=== PATIENT | female | born 1990 | race Caucasian/White ===

== ENCOUNTER 2019-02-12 14:10 | Emergency (ER) | payer OTHER ==
[2019-02-12 14:59] VITALS: BP 120/78; PULSE 77; RESP 18; TEMP 97.5
--- NOTE | 2019-02-12 15:28 | ED ---
General Adult HPI - General Chief complaint: Skin/Abscess/Foreign Body Stated complaint: Possible scabies Time Seen by Provider: 02/12/19 15:08 Source: patient, RN notes reviewed Mode of arrival: ambulatory Limitations: no limitations - History of Present Illness Initial comments: 21-year-old female presents for pruritic rash 2 weeks. Patient states her roommate was diagnosed with scabies. She states her roommate had the skin scraping done. Patient states that for the past 2 weeks she has been itching. She has noticed a rash on her arms legs and abdomen. She is also itching on her back. Patient is concerned she may have scabies. Patient currently in a rehab facility for heroin use. She states that the facility wanted her to be examined. Patient is currently 29 weeks . No vaginal bleeding or prengnancy complications. Patient has no other complaints at this time including shortness of breath, chest pain, abdominal pain, nausea or vomiting, headache, or visual changes. - Related Data Previous Rx's Medication Instructions Recorded Permethrin 5% Cream [Elimite] 1 applic TOPICAL ONCE #100 ml 02/12/19 Allergies Allergy/AdvReac Type Severity Reaction Status Date / Time No Known Allergies Allergy Verified 02/12/19 14:57 Review of Systems ROS Statement: Those systems with pertinent positive or pertinent negative responses have been documented in the HPI. ROS Other: All systems not noted in ROS Statement are negative. Past Medical History Past Medical History: No Reported History History of Any Multi-Drug Resistant Organisms: None Reported Past Surgical History: No Surgical Hx Reported Past Psychological History: No Psychological Hx Reported Smoking Status: Current every day smoker Past Alcohol Use History: None Reported Past Drug Use History: Heroin General Exam Limitations: no limitations General appearance: alert, in no apparent distress Head exam: Present: atraumatic, normocephalic, normal inspection Eye exam: Present: normal appearance, PERRL, EOMI. Absent: scleral icterus, conjunctival injection, periorbital swelling ENT exam: Present: normal exam, mucous membranes moist Neck exam: Present: normal inspection, full ROM. Absent: tenderness, meningismus, lymphadenopathy Respiratory exam: Present: normal lung sounds bilaterally. Absent: respiratory distress, wheezes, rales, rhonchi, stridor Cardiovascular Exam: Present: regular rate, normal rhythm, normal heart sounds. Absent: systolic murmur, diastolic murmur, rubs, gallop, clicks GI/Abdominal exam: Present: soft, normal bowel sounds. Absent: distended, tenderness, guarding, rebound, rigid Skin exam: Present: rash (Patient does have small areas of erythema with excoriations noted on the limbs as well as abdomen consistent with scabies. Small lesions around the belly button as well as finger webs.) Course Vital Signs 02/12/19 14:54 Temperature 97.5 F L Pulse Rate 77 Respiratory 18 Rate Blood Pressure 120/78 O2 Sat by Pulse 98 Oximetry Medical Decision Making - Medical Decision Making 29-year-old female presents to the emergency department for a chief complaint of rash. Patient was exposed to scabies as her roommate was diagnosed with this. Patient has been pruritic for about 2 weeks. On exam patient does have areas of erythema noted with radiations. Small flat erythematous Lesions are noted to the limbs abdomen and back. These are consistent with scabies as there are some noted around the belly button as well as finger webs. Given patient's history as well as symptoms scabies is likely. Patient will be treated with permethrin cream. I did discuss thoroughly how to properly use this. Patient is 29 weeks , permethrin was a category B rating with less than 2% systemic absorption. Patient will follow up with dermatology and primary care. She will return here if she has any worsening symptoms. Disposition Clinical Impression: Rash, Scabies Disposition: HOME SELF-CARE Condition: Good Instructions (If sedation given, give patient instructions): Scabies (ED), Permethrin (On the skin) Additional Instructions: Please use lotion as directed. Apply and leave on for about 12 hours from the neck down. Then wash with soap and water. Reapply in 7-14 days if needed. Follow up with dermatology in 1-2 days. Return here for any worsening symptoms. Prescriptions: Permethrin 5% Cream [Elimite] 1 applic TOPICAL ONCE #100 ml Is patient prescribed a controlled substance at d/c from ED?: No Referrals: Maura Wing MD [STAFF PHYSICIAN] - 1-2 days Tana Dong MD [REFERRING] - 1-2 days Time of Disposition: 15:25
== END 2019-02-12 16:00 | disposition home or self-care (01) ==
LOC: EC 14:10
DX: O99.89 Other specified diseases and conditions complicating pregnancy, childbirth and the puerperium (principal); O99.333 Smoking (tobacco) complicating pregnancy, third trimester; B86 Scabies; F17.200 Nicotine dependence, unspecified, uncomplicated; Z3A.29 29 weeks gestation of pregnancy
CPT/HCPCS: 99282

== ENCOUNTER 2019-03-12 10:12 | Outpatient (CLI) | payer OTHER ==
[2019-03-12] MEDS ORDERED: TERBUTALINE 1 MG/ML VIAL SQ STA (11:37)
[2019-03-12 11:48] VITALS: PULSE 74; RESP 16; TEMP 97.9
[2019-03-12 13:46] VITALS: BP 132/84
--- NOTE | 2019-03-20 09:45 | P.MSEPDOC ---
Presenting Problems - Arrival Data Date of Arrival on Unit: 03/12/19 Time of Arrival on Unit: 10:15 Mode of Transport: EMS - Complaint OB-Reason for Admission/Chief Complaint: Rule Out PROM Comment: week ago leaking. but yesterday really leaking Medical History - Information : 2 Para: 1 Term: 1 : 0 Abortions: Spontaneous or Elective: 0 Number of Living Children: 1 - Gestational Age Gestational Age by SHARDA (wks/days): 31 Weeks and 6 Days - History Complications: Hx. Substance Abuse, Other Comment: 31 6/7 weeks. care in [facility] . dr piña. nae staples. hx heroin and ms use stopped in dec. on methodone now Review of Systems - Review of Systems Constitutional: No problems Breast: No problems ENT: No problems Cardiovascular: No problems Respiratory: No problems Gastrointestinal: No problems Genitourinary: No problems Musculoskeletal: No problems Neurological: No problems Skin: No problems Vital Signs - Temperature Temperature: 97.9 F Temperature Source: Temporal Artery Scan - Pulse Radial Pulse Rate: 74 Pulse Assessment Method: Automatic Cuff - Respirations Respiratory Rate: 16 O2 Sat by Pulse Oximetry: 100 - Blood Pressure Right Arm Blood Pressure: 132/84 Blood Pressure Mean: 100 Blood Pressure Source: Automatic Cuff Medical Screen Scoring (Pre) - Cervical Exam Dilation: 0 cm = 0 Membranes: Intact - Uterine Contractions Frequency: > 5 minutes apart = 1 Duration: > 40 seconds = 2 Intensity: N/A - Maternal Vital Signs Maternal Temperature: N/A Maternal Blood Pressure: N/A Signs of Preeclampsia: N/A Maternal Respirations: N/A - Pain Assessment Pain Location and Character: Abdomen Pain Scale Used: Numeric (1 - 10) Pain Intensity: 3 Pain Description: Cramping Pain Frequency: Intermittent Pain Behavior: Vocalization - Assessment Baseline FHR: 130 Heart Rate - NICHD Category: Category I (Normal) = 0 NST: Reactive Position: N/A Station: N/A - Total Score Total Score (Pre): 3 - Level of Risk Level of Risk: Low (0-5) Physician Notification (Pre) - Physician Notified Physician Notified Date: 03/12/19 Physician Notified Time: 11:15 Physician/Practitioner Notifed:: amina Spoke With: amina New Order Received: Yes Medical Screen Scoring (Post) - Cervical Exam Dilation: 0 cm = 0 Effacement: More than 50% = 2 Membranes: Intact - Uterine Contractions Frequency: > 5 minutes apart = 1 Duration: N/A Intensity: N/A - Maternal Vital Signs Maternal Temperature: N/A Maternal Blood Pressure: N/A Signs of Preeclampsia: N/A Maternal Respirations: N/A - Pain Assessment Pain Location and Character: Abdomen Pain Scale Used: Numeric (1 - 10) Pain Intensity: 1 Pain Description: Cramping Pain Frequency: Intermittent Pain Behavior: Vocalization - Maternal Trauma Maternal Trauma: N/A - Assessment Heart Rate: 120 Heart Rate - NICHD Category: Category I (Normal) = 0 - Total Score Total Score (Post): 3 - Post Treatment Level of Risk Post Treatment Level of Risk: Low (0-5) Physician Notification (Post) - Physician Notified Physician Notified Date: 03/12/19 Physician Notified Time: 12:45 Physician/Practitioner Notified:: amina Spoke With: amina New Order Received: Yes (discharge with instructions) - Notification Comment Comment: will schedule appt with her high risk dr hay. this week Disposition - Disposition OB Disposition: Discharge to home, Written follow up instructions reviewed Discharge Date: 03/12/19 Discharge Time: 13:10 I agree with the RN Medical Screening Exam: No Physician's MSE Comment: Inadequate documentation Risk & Benefit of care provided described in d/c instruction: No Diagnosis: FALSE LABOR, UNSPECIFIED
== END 2019-03-12 13:10 | disposition home or self-care (01) ==
LOC: FBPOP 10:12
PROVIDERS: ATTEND Obstetrics & Gynecology
DX: O47.03 False labor before 37 completed weeks of gestation, third trimester (principal); Z3A.31 31 weeks gestation of pregnancy
CPT/HCPCS: 59025; 96372; 84112; G0463; J3105; 99213; 99214

== ENCOUNTER 2019-03-18 13:25 | Observation (INO) | payer OTHER ==
[2019-03-18] MEDS ORDERED: LACTATED RINGERS 1,000 ML IV ONE (14:15)
[2019-03-18] MEDS ORDERED: BETAMET ACET-BETAMETH SOD PHOS 6 MG/ML VIAL IM SCH (14:15)
[2019-03-18] MEDS ORDERED: LACTATED RINGERS 1,000 ML IV SCH (14:15)
[2019-03-18 15:00] LABS: Basophils % (A) 0 %; Eosinophils # (A) 0.1 k/uL (0-0.7); Eosinophils % (A) 1 %; HCT 35.8 % (34.0-46.0); HGB 12.2 gm/dL (11.4-16.0); Lymphocytes # (A) 2.1 k/uL (1.0-4.8); Lymphocytes % (A) 18 %; MCH 31.9 pg (25.0-35.0); MCV 93.8 fL (80.0-100.0); Monocytes # (A) 0.5 k/uL (0-1.0); Monocytes % (A) 4 %; Neutrophils # (A) 8.6 k/uL (1.3-7.7); Neutrophils % (A) 75 %; Platelet Count 216 k/uL (150-450); RBC 3.82 m/uL (3.80-5.40); RDW 14.3 % (11.5-15.5); WBC 11.5 k/uL (3.8-10.6)
[2019-03-18 15:04] LABS: INR 0.9 (<1.2); Partial Thromboplastin Time 26.7 sec (22.0-30.0); Prothrombin Time 9.6 sec (9.0-12.0)
[2019-03-18 15:05] LABS: ALT 71 U/L (9-52); AST 98 U/L (14-36); Blood Urea Nitrogen 6 mg/dL (7-17); LDH 452 U/L (313-618); Magnesium 1.7 mg/dL (1.6-2.3); Uric Acid 6.3 mg/dL (3.7-7.4)
--- NOTE | 2019-03-18 15:19 | P.HPOB ---
History of Present Illness H&P Date: 03/18/19 Chief Complaint: Contractions This is a 29 year old 3 para 1011 woman with an estimated due date of 04/26/2019 who presents at 34-2/7 weeks gestation complaining of painful contractions. EDC based on 20 week ultrasound. She is currently living in a group recovery home for history of heroin use. She takes methadone 75 mg daily. She reports having several very painful contractions over the last couple of hours and some light spotting therefore she came to the hospital for evaluation. She is followed by a physician at [facility] for her as she used to live in the area. She has been followed for polysubstance abuse, chronic hypertension and hepatitis C. She is not on current therapy for her hepatitis C nor her hypertension. She reports last using heroin on 01/25/2019. On initial evaluation in labor and delivery triage she is found to be irr egularly chaim every 2-5 minutes. Her cervix is 5 cm dilated, 60% effaced, posterior but low, 0 station. Bulging membranes are palpable. heart tones are category 2 with decreased variability but positive acceleration with scalp stimulation. She does smoke and her methadone before she came into triage. She reports feeling good movement. She denies headaches, visual changes, nausea, vomiting, fever, chills, constipation, diarrhea, skin rash. She denies leakage of fluids. Review of records confirm estimated due date of 04/26/2019 based on a 20 week ultrasound. labs dated 12/28/18: Blood type is O+, antibody screen negative, rubella immune, hepatitis B surface antigen negative, hepatitis C antibody positive, HIV 1 and 2 nonreactive, gonorrhea and chlamydia cultures negative. Ultrasound dated 02/17/2019 shows estimated weight of 1467 g, 33rd percentile, PADMINI 10.6 cm. Limited anatomy was recorded as normal. Obstetric history significant for first trimester spontaneous miscarriage in 2013, normal spontaneous vaginal delivery in 2014 of an IUGR infant at 38 weeks. Review of Systems All systems: negative Past Medical History Past Medical History: No Reported History History of Any Multi-Drug Resistant Organisms: None Reported Past Surgical History: No Surgical Hx Reported Smoking Status: Current every day smoker Past Drug Use History: Cocaine, Heroin, Marijuana Additional Drug Use History / Comment(s): Currently on methadone 75 mg daily Medications and Allergies Home Medications Medication Instructions Recorded Confirmed Type Methadone HCl [Methadose] 65 mg PO DAILY 03/12/19 03/12/19 History Allergies Allergy/AdvReac Type Severity Reaction Status Date / Time No Known Allergies Allergy Verified 02/12/19 14:57 Exam Intake and Output 03/18/19 03/18/19 03/18/19 06:59 14:59 22:59 Other: Weight 58.967 kg This is a somewhat angry and irritated female who is visibly gravid. Targeted physical exam is performed secondary to patient's irritation. The abdomen is gravid, soft and nontender with a fundal height of approximately 30 cm. On pelvic examination cervix is 5 cm dilated posterior, 60% effaced, bulging membranes and 0 station. She has no lower extremity edema but does have some areas of skin excoriation on arms and legs. heart tones are currently category 2 secondary to minimal variability but no repetitive decelerations noted. She has had positive accelerations with pelvic exam. She is chaim every 5 minutes currently. Results Result Diagrams: 03/18/19 14:36 Abnormal Lab Results - Last 24 Hours (Table) 03/18/19 Range/Units 14:36 WBC 11.5 H (3.8-10.6) k/uL Neutrophils # 8.6 H (1.3-7.7) k/uL Assessment and Plan (1) 34 weeks gestation of Narrative/Plan: By 20 week ultrasound. Repeat OB ultrasound is ordered for current estimated weight. Betamethasone 1 has been given. Special care nursery has been notified. Current Visit: Yes Status: Acute Code(s): Z3A.34 - 34 WEEKS GESTATION OF SNOMED Code(s): 08234794 (2) labor Narrative/Plan: labor with advanced cervical dilation. She is currently on stable for transport. She is not actively bleeding however does report some bleeding at home. This is likely secondary to cervical dilation however cannot rule out abruption at this time therefore we will hold tocolysis for now. If her clinical picture stabilizes and it appears we may be able to gain more time L initiate magnesium sulfate for transfer of care but I think this is unlikely. G roup B strep prophylactic antibiotics are initiated. Current Visit: Yes Status: Acute Code(s): O60.00 - LABOR WITHOUT DELIVERY, UNSPECIFIED TRIMESTER SNOMED Code(s): 7727874 (3) Hepatitis C antibody test positive Current Visit: Yes Status: Acute Code(s): R76.8 - OTHER SPECIFIED ABNORMAL I MMUNOLOGICAL FINDINGS IN SERUM SNOMED Code(s): 279485668 (4) Polysubstance abuse Narrative/Plan: Currently on methadone. Reports last use approximately 2 months ago of heroin. Current Visit: Yes Status: Acute Code(s): F19.10 - OTHER PSYCHOACTIVE SUB STANCE ABUSE, UNCOMPLICATED SNOMED Code(s): 557174795 (5) Chronic hypertension affecting Narrative/Plan: PIH labs pending. No signs or symptoms of evolving preeclampsia at this time. Urinalysis pending. Treat as indicated. Current Visit: Yes Status: Acute Code(s): O10.919 - UNSP PRE-EXISTING HTN COMP , UNSP TRIMESTER SNOMED Code(s): 14038324 Plan: 29-year-old 3 para 1011 woman who presents at 34-2/7 weeks' gestation based on 20 week ultrasound with history of increasing contraction activity's. complicated by polysubstance abuse and chronic hypertension and hepatitis C. She will be admitted with probable progression of labor and delivery however should she stabilize over a period of several hours we will consider transfer to a tertiary care facility. I discussed all this with the patient who is somewhat angry and difficult. I tried to answer her questions about current situation and unclear plan to the best of my abilities. We will monitor closely.
[2019-03-18 15:29] LABS: Appearance,Urine Clear (Clear); Bilirubin,Urine Negative (Negative); Blood,Urine Negative (Negative); Color,Urine Yellow; Glucose,Urine (UA) Negative (Negative); Ketones,Urine Negative (Negative); Leukocyte Esterase,Urine Moderate (Negative); Mucus,Urine Few /hpf; Nitrite,Urine Negative (Negative); Protein,Urine Trace (Negative); RBC,Urine 2 /hpf (0-5); Specific Gravity,Urine 1.022 (1.001-1.035); Squamous Epithelial Cell,Urine 1 /hpf (0-4); WBC,Urine 9 /hpf (0-5)
[2019-03-18 15:35] LABS: Cocaine Screen,Urine Not Detected (NotDetected); Phencyclidine Screen,Urine Not Detected (NotDetected); Urn Cannabinoid Scrn Not Detected (NotDetected)
[2019-03-18 15:36] LABS: Amphetamine Screen,Urine Not Detected (NotDetected); Barbiturate Screen,Urine Not Detected (NotDetected); Benzodiazepines Screen,Urine Not Detected (NotDetected); Methadone Screen, Urine Detected (NotDetected); Opiate Screen,Urine Not Detected (NotDetected); Oxycodone Screen, Urine Not Detected (NotDetected); Tricyclic Antidepressant,Urine Not Detected (NotDetected)
[2019-03-18] MEDS: NIFEdipine 10 MG CAP PO PRN ×3 (15:39→16:31)
--- NOTE | 2019-03-18 15:51 | US ---
EXAMINATION TYPE: US OB limited DATE OF EXAM: 03/18/2019 COMPARISON: NONE CLINICAL HISTORY: position, PADMINI, measurements. Contractions EXAM PERFORMED: Transabdominal (TA) GESTATIONAL AGE / DATING Physician Established: (32 weeks/5 days) EDC: 05/08/2019 Dates by Current Scan: (32 weeks/0 days) EDC: 05/13/2019 SURVEY PADMINI: 15.3 cm Normal Ultrasound evidence of premature rupture of membranes? no PRESENTATION: Vertex HEART RATE: 125 bpm RHYTHM: Normal BPD: 8.0 cm 32 weeks / 0 days HC: 29.6 cm 32 weeks / 5 days AC: 27.3 cm 31 weeks / 3 days FL: 6.3 cm 32 weeks / 5 days Viable single IUP measuring 32 weeks 0 days with a heart rate of 125bpm and an estimated delivery ruy e of 05/13/2019. IMPRESSION: Amniotic fluid is adequate. No complicating process seen.
[2019-03-18] MEDS ORDERED: ceFAZolin IN SWFI 2 GM/20 ML SYRINGE IVP SCH (16:00)
[2019-03-18 18:13] VITALS: BP 156/90; PULSE 83; RESP 16; TEMP 97.3; BMI 23.8
--- NOTE | 2019-03-18 19:51 | P.PN ---
Subjective Progress Note Date: 03/18/19 Principal diagnosis: labor at 34-2/7 weeks' gestation Chronic hypertension Polysubstance abuse Hepatitis C Patient currently denies any contractions. She had some spotting on the toilet tissue with wiping. Denies any active vaginal bleeding. No leakage of fluids. She is complaining of being hungry. She has been followed throughout the day and with IV fluid rehydration and Procardia has had significant decrease in contraction activity. Her cervix has remained unchanged over multiple evaluations. Cervix is 4-5 cm dilated, 60% effaced, posterior with a low station. heart tones are baseline 120-125 with decreased variability. She does have accelerations. No decelerations. Very irregular uterine irritability. Patient is requesting transported to [facility]. Her cervix has remained unchanged over the last 6 hours. She has minimal uterine activity. She has no active vaginal bleeding or leakage of fluids. Her blood pressures have remained in the 130s to 150s over 80s. I do believe she is stable for transport and the alternative is her threatening to leave AGAINST MEDICAL ADVICE. I discussed the case with at [facility] to accept the patient in transport. I have counseled the patient in detail regarding risks of transport mainly possible delivery of a infant in route. She understands [facility] is not the closest tertiary care facility that has NICU access. She verbalizes her understanding of the risks of transport and consent has been obtained. Objective - Vital Signs Vital signs: Vital Signs Temp 97.3 F L 03/18/19 14:55 Pulse 83 03/18/19 14:55 Resp 16 03/18/19 14:55 BP 156/90 03/18/19 14:55 Pulse Ox 99 03/18/19 14:55 Intake & Output 03/18/19 03/18/19 03/19/19 06:59 18:59 06:59 Weight 58.967 kg - Labs CBC & Chem 7: 03/18/19 14:36 03/18/19 14:36 Labs: Abnormal Lab Results - Last 24 Hours (Table) 03/18/19 03/18/19 03/18/19 Range/Units 14:25 14:25 14:36 WBC (3.8-10.6) k/uL Neutrophils # (1.3-7.7) k/uL BUN 6 L (7-17) mg/dL Creatinine 0.49 L (0.52-1.04) mg/dL AST 98 H (14-36) U/L ALT 71 H (9-52) U/L Urine Protein Trace H (Negative) Ur Leukocyte Esterase Moderate H (Negative) Urine WBC 9 H (0-5) /hpf Urine Mucus Few H (None) /hpf Urine Methadone Screen Detected H (NotDetected) 03/18/19 Range/Units 14:36 WBC 11.5 H (3.8-10.6) k/uL Neutrophils # 8.6 H (1.3-7.7) k/uL BUN (7-17) mg/dL Creatinine (0.52-1.04) mg/dL AST (14-36) U/L ALT (9-52) U/L Urine Protein (Negative) Ur Leukocyte Esterase (Negative) Urine WBC (0-5) /hpf Urine Mucus (None) /hpf Urine Methadone Screen (NotDetected) Assessment and Plan (1) 34 weeks gestation of Current Visit: Yes Status: Acute Code(s): Z3A.34 - 34 WEEKS GESTATION OF SNOMED Code(s): 86079077 (2) labor Current Visit: Yes Status: Acute Code(s): O60.00 - LABOR WITHOUT DELIVERY, UNSPECIFIED TRIMESTER SNOMED Code(s): 4748296 (3) Hepatitis C antibody test positive Current Visit: Yes Status: Acute Code(s): R76.8 - OTHER SPECIFIED ABNORMAL IMMUNOLOGICAL FINDINGS IN SERUM SNOMED Code(s): 384555801 (4) Polysubstance abuse Current Visit: Yes Status: Acute Code(s): F19.10 - OTHER PSYCHOACTIVE SUBSTANCE ABUSE, UNCOMPLICATED SNOMED Code(s): 839936384 (5) Chronic hypertension affecting Current Visit: Yes Status: Acute Code(s): O10.919 - UNSP PRE-EXISTING HTN COMP , UNSP TRIMESTER SNOMED Code(s): 51575704
== END 2019-03-18 20:32 ==
LOC: FBPOP 13:25 → 4FBP 14:51 → INTOOBSV 14:51 → UNDODISIN 20:32
PROVIDERS: ADMIT Obstetrics & Gynecology; ATTEND Obstetrics & Gynecology
DX: O60.03 Preterm labor without delivery, third trimester (principal); O98.413 Viral hepatitis complicating pregnancy, third trimester; B19.20 Unspecified viral hepatitis C without hepatic coma; O99.323 Drug use complicating pregnancy, third trimester; F11.10 Opioid abuse, uncomplicated; O10.913 Unspecified pre-existing hypertension complicating pregnancy, third trimester; O99.333 Smoking (tobacco) complicating pregnancy, third trimester; F17.200 Nicotine dependence, unspecified, uncomplicated; Z3A.34 34 weeks gestation of pregnancy
CPT/HCPCS: 59025; 96374; 96372; 84112; 84156; 82565; 83615; 83735; 84450; 84460; 84520; 84550; 85025; 85384; 85610; 85730; 81001; 80306; 76815; G0463; G0378; J0702; J0690; 96360; 96366; 99213